=== PATIENT | female | born 1940 | race American Indian/Alaskan Native ===

== ENCOUNTER 2023-12-17 16:08 | Inpatient (IN) | payer MEDICARE ==
[~2023-12-17] VITALS: Ht 149.9 cm; Wt 85.6 kg
[2023-12-17] MEDS ORDERED: HYDRA25 PO (16:43)
[2023-12-17] MEDS ORDERED: ALLO100 (16:43)
[2023-12-17] MEDS ORDERED: LEVSOD25 PO (16:43)
[2023-12-17] MEDS ORDERED: ELIQUIS5 M2 PO (16:43)
[2023-12-17] MEDS ORDERED: TORSE20 PO (16:43)
[2023-12-17] MEDS ORDERED: ATOR40TA PO (16:43)
[2023-12-17] MEDS ORDERED: CATAPRES0.1 MG PO (16:44)
[2023-12-17] MEDS ORDERED: NS 1,000 ML IV SCH (16:45)
[2023-12-17 16:56] LABS: BASOPHILS ABSOLUTE AUTO 0.05 K/mm3 (0.00-0.23); BASOPHILS PERCENT AUTO 1 % (0-2); EOSINOPHILS ABSOLUTE AUTO 0.12 K/mm3 (0.00-0.68); EOSINOPHILS PERCENT AUTO 1 % (0-6); Hemoglobin 9.1 g/dL (11.5-16.0); IMMATURE GRAN ABSOLUTE AUTO 0.06 K/mm3 (0.00-0.10); IMMATURE GRAN PERCENT AUTO 1 % (0-1); LYMPHOCYTES ABSOLUTE AUTO 1.83 K/mm3 (0.84-5.20); LYMPHOCYTES PERCENT AUTO 18 % (21-46); MONOCYTES ABSOLUTE AUTO 0.71 K/mm3 (0.16-1.47); MONOCYTES PERCENT AUTO 7 % (4-13); Mean Corpuscular HGB 22.6 pg (26.0-34.0); Mean Corpuscular HGB Conc 28.4 g/dL (31.5-36.5); Mean Corpuscular Volume 80 fL (80-100); Mean Platelet Volume 11.3 fL (9.1-12.4); NEUTROPHILS PERCENT AUTO 73 % (41-73); Platelet Count 259 K/mm3 (150-400); RDW Coefficient Variation 19.1 % (11.7-14.2); Red Blood Cell Count 4.02 M/mm3 (3.80-5.20); White Blood Cell Count 10.37 K/mm3 (4.00-11.30)
[2023-12-17 17:10] LABS: Source, Urine Clean Catch
[2023-12-17 17:13] LABS: Albumin, Blood 3.5 g/dL (3.4-5.0); Albumin/Globulin Ratio 0.9 (0.8-1.8); Bilirubin, Total 0.4 mg/dL (0.1-1.0); Bun/Creatinine Ratio 23.1 (12.0-20.0); Creatinine, Blood 1.6 mg/dL (0.40-1.00); Magnesium, Blood 2.1 mg/dL (1.6-2.4); Potassium, Blood 4.1 mmol/L (3.5-5.5); Total Protein, Blood 7.5 g/dL (6.4-8.2)
[2023-12-17 17:16] LABS: Appearance, Urine Hazy (Clear); Bilirubin, Urine Neg (Neg); Blood, Urine 2+ (Neg); Glucose Qualitative, Urine Neg (Neg); Ketones, Urine Neg (Neg); Leukocyte Esterase, Urine 3+ (Neg); Nitrite, Urine Pos (Neg); Protein, Urine 1+ (Neg); Urobilinogen, Urine NORM (Normal)
[2023-12-17 17:25] LABS: Color, Urine Pale Yellow (P-Yellow)
[2023-12-17 17:27] LABS: Bacteria Many /hpf; Red Blood Cells, Urine 0-2 /hpf (0-2); Squamous Epithelial Cells Rare /hpf (Few); White Blood Cells, Urine TNTC /hpf (0-5)
[2023-12-17 17:28] LABS: Hyaline Casts 0-2 /lpf (0-2); Mucus Light (0-Heavy); Renal Epithelial Rare /hpf (0-Rare); Transitional Epithelial Cells Rare /hpf (0-Rare)
[2023-12-17] MEDS ORDERED: CefTRIAXone Sodium 1,000 MG in NS 100 ML IV ONE ×2 (18:35→19:50)
[2023-12-17] MEDS ORDERED: Azithromycin 250 MG Tab PO ONE (19:50)
[2023-12-17] MEDS ORDERED: Ondansetron HCl 2 MG / ML 2ML Vial IV PRN (22:20)
[2023-12-17] MEDS ORDERED: NS 1,000 ML IV ONE (22:20)
[2023-12-17] MEDS ORDERED: Acetaminophen 325 MG TABLET PO PRN (22:20)
[2023-12-17] MEDS ORDERED: FLU VACC TS2024-25(6MOS UP)/PF 45 MCG/0.5 ML SYRINGE IM ONE (22:20)
[2023-12-17] MEDS ORDERED: HydrALAZINE HCl 20 MG / ML 1ML Vial IV PRN (22:25)
[2023-12-17] MEDS ORDERED: Enoxaparin 40 MG/0.4 ML SYR SC SCH (23:00)
[2023-12-17 23:29] VITALS: BP 184/70
--- NOTE | 2023-12-17 23:30 | NUR ---
PT ARRIVED TO UNIT FROM ED, TRANSFERED TO BED W/ SLIDE SHEET. PT INSTRUCTED INSPECTOR BICYCLE LIGHT, BED ALARM ON FOR SAFETY. PT CONFUSED AND HALLUCINATED, UNABLE TO REPORT WHY SHE IS HERE. PT UNABLE TO RELAX FOR VITAL SIGNS. IV FLUIDS GIVEN ORDERED, PT DENIES PAIN. PT VOIDED IN BEDPAN UPON ARRIVAL, CHANGED ATTENDS AND PERFORMED LORNA CARE. PT REORIENTED SEVERAL TIMES. CALL LIGHT WITHIN REACH.
[2023-12-18 02:23] VITALS: BP 153/92
[2023-12-18] MEDS ORDERED: OLANZapine 10 MG Vial IM ONE (03:40)
--- NOTE | 2023-12-18 03:40 | NUR ---
PT BECOMING INCREASINGLY CONFUSED, AGITATED, TRYING TO GET OUT OF BED, UNABLE TO BE REORIENTED. PT STATES SHE "KNOWS SHE IS IN THE HOSPITAL, BUT NEEDS TO GET IN HER OWN BED". HAS SET OFF BED ALARM MULTIPLE TIMES. NOTIFIED DR. QUINN, RECIEVED ORDER FOR ZYPREXA INJECTION.
--- NOTE | 2023-12-18 04:31 | NUR ---
PT HAVING HALLUCINATIONS SINCE ADMIT.PT WAS GIVEN ZYPREXA PER ORDER.WHILE FOLLOWING UP ON STATUS, PT NOTED TO HAVE SLIGHTLY IRREG BREATHING PATTERN AND SATS 89% ON 4 L N/C WHICH WAS REPORTED TO BE PTS HOME BASELINE PER ER REPORT. NO FAMILY AT BEDSIDE UPON ARRIVAL TO . I CALLED DR QUINN AND ADVISED OF ABOVE.VBG ORDERED AND LAB HAD GATHERED.
[2023-12-18 04:38] LABS: Base Excess Venous -3.9 mmol/L; Bicarbonate Venous 20.5 mmol/L (24.0-30.0); PCO2 Venous 52.9 mmHg (38-42); pH Blood Venous 7.25 (7.34-7.37)
[2023-12-18 04:55] LABS: BASOPHILS ABSOLUTE AUTO 0.07 K/mm3 (0.00-0.23); BASOPHILS PERCENT AUTO 0 % (0-2); EOSINOPHILS ABSOLUTE AUTO 0.24 K/mm3 (0.00-0.68); EOSINOPHILS PERCENT AUTO 2 % (0-6); Hematocrit 34.7 % (33.0-51.0); Hemoglobin 9.8 g/dL (11.5-16.0); IMMATURE GRAN ABSOLUTE AUTO 0.07 K/mm3 (0.00-0.10); IMMATURE GRAN PERCENT AUTO 0 % (0-1); LYMPHOCYTES ABSOLUTE AUTO 1.55 K/mm3 (0.84-5.20); LYMPHOCYTES PERCENT AUTO 10 % (21-46); MONOCYTES ABSOLUTE AUTO 0.83 K/mm3 (0.16-1.47); MONOCYTES PERCENT AUTO 5 % (4-13); Mean Corpuscular HGB 22.9 pg (26.0-34.0); Mean Corpuscular HGB Conc 28.2 g/dL (31.5-36.5); Mean Corpuscular Volume 81 fL (80-100); Mean Platelet Volume 11.5 fL (9.1-12.4); NEUTROPHILS PERCENT AUTO 83 % (41-73); Platelet Count 292 K/mm3 (150-400); RDW Standard Deviation 56.4 fL (35.1-46.3); Red Blood Cell Count 4.28 M/mm3 (3.80-5.20); White Blood Cell Count 16.06 K/mm3 (4.00-11.30)
[2023-12-18 05:12] LABS: Albumin, Blood 3.6 g/dL (3.4-5.0); Albumin/Globulin Ratio 0.9 (0.8-1.8); Bilirubin, Total 0.4 mg/dL (0.1-1.0); Bun/Creatinine Ratio 20.8 (12.0-20.0); Calcium, Blood 9.2 mg/dL (8.5-10.1); Creatinine, Blood 1.49 mg/dL (0.40-1.00); Globulin, Blood 4.2 g/dL (2.2-4.0); Total Protein, Blood 7.8 g/dL (6.4-8.2)
--- NOTE | 2023-12-18 05:15 | NUR ---
444 VBG RESULTED CRITICAL PH.I CALLED RESULT TO DR QUINN AND RECEIVED ORDER FOR BIPAP ATTEMPT WITH F/U VBG IF BIPAP TOLERATED.PT IS CURRENTLY TOLERATING BIPAP. CONTINUES TO PICK AT AIR,BUT HAS NOT PULLED MASK OFF SO FAR. NEXT VBG SCHEDULED FOR 744.
--- NOTE | 2023-12-18 05:51 | NUR ---
SHIFT SUMMARY SEE PREVIOUS NOTES FOR CHANGES IN PT STATUS. PT CONTINUES TO BE CONFUSED BUT IS MORE RELAXED SINCE ADMINISTRATION OF ZYPREXA PER EMAR. BED ALARM ON FOR SAFETY. PURWICK IN PLACE. IV FLUIDS GIVEN PER EMAR. PT HAVING CONT AND INC VOIDS, ATTENDS CURRENTLY DRY. PT TOLERATING BIPAP, STILL FIDGETING AND PICKING AT AIR, ARGUING W/ STAFF AT TIMES BUT HAS NOT ATTEMPTED TO PULL BIPAP OFF. O2 SATS >90% W/ BIPAP ON. DR. QUINN ORDERED REPEAT VBG TO BE DRAWN LATER. PT DENIES PAIN. IV ABX ORDERED DAILY. CALL LIGHT IN REACH, HOMICIDE SQUAD SERGEANT AT BEDSIDE. UNABLE TO REVIEW HX W/ PT, PT IS A VERY POOR HISTORIAN.
[2023-12-18 07:22] VITALS: BP 136/68
[2023-12-18 08:10] LABS: PCO2 Venous 49.4 mmHg (38-42); pH Blood Venous 7.32 (7.34-7.37)
[2023-12-18 08:11] LABS: Base Excess Venous -0.5 mmol/L; Bicarbonate Venous 23.1 mmol/L (24.0-30.0)
--- NOTE | 2023-12-18 09:30 | NUR ---
DR. PAK ROUNDED. DISCUSSED PT STATUS, INCREASED WBC COUNT, LOW URINARY OUTPUT, IV FLUID RATE, R SHOULDER PAIN AND MUMBLED SPEECH. DR. HAYNES REQUESTED PT BE TRANSFERED TO PCU. MEDICAL EDUCATION COORDINATOR NOTIFIED.
[2023-12-18] MEDS ORDERED: NS 1,000 ML IV SCH (10:50)
[2023-12-18 11:31] VITALS: BP 116/98
--- NOTE | 2023-12-18 11:37 | NUR ---
REPORT GIVEN TO MIGUEL IN PCU. PT TRANSFERRED TO PCU 9 AT 1121 WITH ASSISTANCE FROM CHAS FROM RT. PT AWAKE AND UNCHANGED SINCE AM ASSESSMENT AT TIME OF TRANSFER. FAMILY NOTIFIED OF TRANFER TO PCU.
--- NOTE | 2023-12-18 13:29 | NUR ---
PCU ARRIVAL / UPDATE PT BROUGHT TO PCU-09 BY BED FROM SURGICAL FLOOR @ APPROX 1120. PT WAKES TO VERBAL STIMULI. PT SPEECH MUMBLED & DIFFICULT TO UNDERSTAND. PT ORIENTED TO SELF & FAMILY AT BEDSIDE. PT STATING LOCATION [facility]. PT DENIES KNOWING DATE. PT SPEAKING INCOMPREHENSIBLY WHILE NO ONE PRESENT IN RM. PT VSS. MONITOR SHOWING PACED RHYTHM, HR 60s. SPO2 > 90% ON BIPAP: 10/5, FIO2 30%. PT FAMILY REPORTING PT WEARS CPAP AT HOME & 4L NC. PT FAMILY REPORTING PT NOT CONSISTENTLY WEARING OXYGEN AT HOME, STATING PT MORE FIDGETY RECENTLY. PT FAMILY REQUESTING PT TRANSFER TO [facility] D/T PT RECEIVING ALL HER CARE THERE. MD PAK TO BEDSIDE TO DISCUSS W/ FAMILY. PT REPORTING NEED TO VOID. PT ASSISTED W/ BEDPAN W/ PT UNABLE TO VOID. BLADDER SCAN SHOWING 925 MLS. MD PAK W/ INSTRUCTION TO STRAIGHT CATH.
[2023-12-18 14:34] LABS: Base Excess Venous -1.4 mmol/L; Bicarbonate Venous 22.8 mmol/L (24.0-30.0); PCO2 Venous 43.8 mmHg (38-42); pH Blood Venous 7.35 (7.34-7.37)
[2023-12-18] MEDS ORDERED: Ipratropium Bromide INH 0.02% 0.5 mg/2.5ML Vial INH SCH (14:35)
[2023-12-18] MEDS ORDERED: Mometasone/Formoterol MDI 100/5 mcg 13 GM INH SCH (14:35)
[2023-12-18] MEDS ORDERED: Tiotropium Bromide 2.5 MCG/ACT MIST INHAL (10 ACT/4 GM) INH SCH (15:00)
[2023-12-18] MEDS ORDERED: Albuterol 2.5 MG/3 ML VIAL INH PRN (15:00)
[2023-12-18 16:14] VITALS: BP 156/97
[2023-12-18] MEDS ORDERED: TRELEGY ELLIPT1 EACH INH (16:27)
[2023-12-18] MEDS ORDERED: Bisoprolol Fuma10 MG PO (16:27)
[2023-12-18] MEDS ORDERED: TOLTERODINE TART4 MG PO (16:29)
[2023-12-18] MEDS ORDERED: Budeprion Xl300 MG PO (16:31)
[2023-12-18] MEDS ORDERED: ALBU90OI INH (16:33)
[2023-12-18] MEDS ORDERED: PredniSONE 20 MG Tab PO SCH (17:00)
--- NOTE | 2023-12-18 17:47 | NUR ---
END OF SHIFT PT CONTINUES TO BE CONFUSED. ORIENTED TO SELF. NEWLY STATING LOCATION "HOSPITAL" BUT CONTINUES TO BE DISORIENTED TO TOWN, DATE/TIME. PT SPEECH REMAINS DIFFICULT TO UNDERSTAND. PT SLEEPING INTERMITTENTLY T/O SHIFT. VSS. SPO2 > 92% ON BIPAP: 12/23, 30%. MONITOR SHOWING PACED RHYTHM, HR 60s. STRAIGHT CATH DONE X1 THIS SHIFT W/ 1,100 MLS YELLOW URINE DRAINED. NS GTT INFUSING PER EMAR. BED ALARM ON.
[2023-12-18 20:00] VITALS: BP 110/72
[2023-12-18] MEDS ORDERED: CefTRIAXone Sodium 1,000 MG in NS 100 ML IV SCH (21:00)
[2023-12-18] MEDS ORDERED: Azithromycin 500 MG in NS 250 ML IV SCH (21:00)
[2023-12-18] MEDS ORDERED: CloNIDine 0.1 MG Tab PO SCH (21:00)
[2023-12-18 23:48] VITALS: BP 121/69
[2023-12-19 04:40] VITALS: BP 151/98
--- NOTE | 2023-12-19 05:00 | NUR ---
SHIFT SUMMARY SHIRA WAS ALERT, AND ORIENTED TO SELF AND HER DAUGHTER WHO WAS VISITING. RESPONDING YES AND NO APPROPRIATELY AND APPEARS TO UNDERSTAND WHAT IS BEING ASKED. PT BLADDER RETENTION MONITORED CLOSELY THIS SHIFT D/T DAYSHIFT REPORT OF RETENTION OF AROUND 1000ML. PT WAS STRAIGHT CATHED ONCE THIS SHIFT AND REPORTS RELIEF. PT CURRENTLY SATTING WELL ON BIPAP, BLOOD GAS VALUE IMPROVED. PT B/P AT START OF SHIFT WAS SIGNIFICANTLY LOWER THAN HER DAY SHIFT TREND, DISCUSSED WITH BUCK SWAMPER, BP MEDS HELD, PT MONITORED. AT THIS TIME HER B/P HAS RETURNED TO HER PREVIOUS TREND. PT RESTING IN BED AT A LOW POSITION WITH BED ALARM PLACED.
[2023-12-19] MEDS ORDERED: Levothyroxine Sodium 0.025 MG Tab PO SCH (06:00)
[2023-12-19] MEDS ORDERED: Omeprazole 20 MG CapCR PO SCH (06:00)
[2023-12-19 08:15] VITALS: BP 131/96
[2023-12-19] MEDS ORDERED: Calcitriol 0.25 MCG Cap PO SCH (09:00)
[2023-12-19] MEDS ORDERED: Atorvastatin 40 MG Tab PO SCH (09:00)
[2023-12-19] MEDS ORDERED: Allopurinol 100 MG Tab PO SCH (09:00)
[2023-12-19] MEDS ORDERED: Metoprolol Succinate 50 MG TABCR PO SCH (09:00)
[2023-12-19] MEDS ORDERED: buPROPion HCL 150 MG TAB.SR.12H PO SCH (09:00)
[2023-12-19 11:10] VITALS: BP 102/62
[2023-12-19 11:16] LABS: Base Excess Venous -5.5 mmol/L; PCO2 Venous 42.3 mmHg (38-42)
[2023-12-19 15:52] VITALS: BP 160/99
--- NOTE | 2023-12-19 18:08 | NUR ---
END OF SHIFT UPON CARE ASSUMPTION, PT A&O TO SELF & LOCATION "HOSPITAL". PT ALERT T/O MORNING W/ SPO2 > 92% ON 1L NC. PT THEN SLEEPING, TRANSITIONED BACK TO BIPAP D/T DESAT WHILE SLEEPING. PT TOLERATING BIPAP WELL. UPON ATTEMPT TO WAKE PT FOR DOCTOR ROUNDING, PT SWITCHED BACK TO NC. PT UNABLE TO OPEN EYES. W/ ORDER FOR REPEAT VBG & PLACE BIPAP BACK ON AFTER VBG. PT SLEEPING HEAVILY T/O AFTERNOON, WAKING ONLY BRIEFLY TO VERBAL STIMULI W/ TOUCH. BLADDER SCANS DONE THIS SHIFT. BLADDER SCAN SHOWING > 400 MLS. PT ENCOURAGED TO ATTEMPT VOIDING ON BEDPAN. PT STATING "THIS IS BULLSHIT. I CAN'T PEE. YOU HAVE TO PUT SOMETHING INSIDE ME." PT ATTEMPTING TO VOID ON BEDPAN BUT UNABLE. STRAIGHT CATH DONE @ APPROX 1730 W/ APPROX 720 MLS URINE OUT. PT BRIEFLY ALERT & INTERACTIVE, NOW SLEEPING AGAIN. BED ALARM ON.
[2023-12-19 19:55] VITALS: BP 149/92
[2023-12-19] MEDS ORDERED: Bisacodyl 10 MG Supp PR PRN (23:30)
[2023-12-19] MEDS ORDERED: Magnesium Hydroxide Conc 10 ML UDC PO PRN (23:35)
[2023-12-20 00:01] VITALS: BP 106/58
[2023-12-20 04:00] VITALS: BP 132/93
[2023-12-20 04:13] LABS: BASOPHILS ABSOLUTE AUTO 0.07 K/mm3 (0.00-0.23); BASOPHILS PERCENT AUTO 1 % (0-2); EOSINOPHILS ABSOLUTE AUTO 0.19 K/mm3 (0.00-0.68); EOSINOPHILS PERCENT AUTO 2 % (0-6); Hematocrit 33.2 % (33.0-51.0); Hemoglobin 9.6 g/dL (11.5-16.0); IMMATURE GRAN PERCENT AUTO 1 % (0-1); LYMPHOCYTES ABSOLUTE AUTO 0.78 K/mm3 (0.84-5.20); LYMPHOCYTES PERCENT AUTO 6 % (21-46); MONOCYTES ABSOLUTE AUTO 1.11 K/mm3 (0.16-1.47); MONOCYTES PERCENT AUTO 9 % (4-13); Mean Corpuscular HGB 23.4 pg (26.0-34.0); Mean Corpuscular HGB Conc 28.9 g/dL (31.5-36.5); Mean Corpuscular Volume 81 fL (80-100); NEUTROPHILS ABSOLUTE AUTO 10.02 K/mm3 (1.96-9.15); NEUTROPHILS PERCENT AUTO 82 % (41-73); NRBC ABSOLUTE 0.07 K/mm3 (0.00-0.02); NRBC Auto 0.6 /100 WBC (0.0-0.2); Platelet Count 196 K/mm3 (150-400); RDW Coefficient Variation 19.3 % (11.7-14.2); RDW Standard Deviation 55.2 fL (35.1-46.3); Red Blood Cell Count 4.11 M/mm3 (3.80-5.20); White Blood Cell Count 12.27 K/mm3 (4.00-11.30)
[2023-12-20 04:20] LABS: Mean Platelet Volume 11.5 fL (9.1-12.4)
--- NOTE | 2023-12-20 05:56 | NUR ---
SHIFT SUMMARY ASSUMED CARE OF PT AT 1900. PT A&O4, ABLE TO EXPRESS SELF CLEARLY AND COOPERATIVE IN CARE. AT APPROX MIDNIGHT, PT BECAME TACHYPNEIC, CONFUSED AND BEGAN TO MUMBLE. PT REQUESTED A BREATHING TX, A&O2 WITH CONFUSION TO TIME AND SITUATION. CALLED RT FOR TX AND TO BE PLACED ON BIPAP. AT APPROX 0400 PT BECAME A&O4 BUT STILL ALTERED IN SPEECH WITH A SLIGHT MUMBLE BUT STILL ABLE TO MAKE OUT WHAT THE PT IS SAYING. PT STAYED ON BIPAP T/O THE NIGHT. PT REPORTED NO URGE TO VOID, BLADDER SCANNED TWICE; [id number] AND [id number]. DID NOT MEET CRITERIA FOR STRAIGHT CATH. PT'S BED IN LOWEST POSITION AND CALL LIGHT WITHIN REACH.
[2023-12-20 06:29] LABS: Albumin, Blood 3.1 g/dL (3.4-5.0); Albumin/Globulin Ratio 0.9 (0.8-1.8); Bilirubin, Total 0.4 mg/dL (0.1-1.0); Bun/Creatinine Ratio 32.4 (12.0-20.0); Calcium, Blood 8.2 mg/dL (8.5-10.1); Creatinine, Blood 1.48 mg/dL (0.40-1.00); Globulin, Blood 3.5 g/dL (2.2-4.0); Potassium, Blood 4.4 mmol/L (3.5-5.5); Total Protein, Blood 6.6 g/dL (6.4-8.2)
[2023-12-20 07:41] VITALS: BP 131/80
[2023-12-20] MEDS ORDERED: Docusate Sodium 100 MG Cap PO SCH (09:00)
[2023-12-20] MEDS ORDERED: Sennosides 8.6 MG Tab PO SCH (09:00)
[2023-12-20] MEDS ORDERED: Enoxaparin 30 MG/0.3 ML SYR SC SCH (09:00)
[2023-12-20 11:45] LABS: Source, Urine Foley catheter
[2023-12-20 11:58] LABS: Appearance, Urine Clear (Clear); Bilirubin, Urine Neg (Neg); Blood, Urine 3+ (Neg); Color, Urine Yellow (P-Yellow); Glucose Qualitative, Urine Neg (Neg); Ketones, Urine Neg (Neg); Leukocyte Esterase, Urine 2+ (Neg); Nitrite, Urine Neg (Neg); Protein, Urine 2+ (Neg); Urobilinogen, Urine NORM (Normal)
[2023-12-20 12:16] LABS: Squamous Epithelial Cells Few /hpf (Few)
[2023-12-20 12:17] LABS: Bacteria Rare /hpf; Yeast/Fungi Urine Few /hpf
[2023-12-20 15:11] VITALS: BP 121/89
--- NOTE | 2023-12-20 17:58 | NUR ---
SHIFT SUMMARY: PT HAS BEEN A&O TO SELF, LOCATION, SITUATION, VISITORS THIS SHIFT. PT HAS BEEN ANSWERING QUESTIONS APPROPRIATELY, SPEECH IS SOFT/MUMBLED, COOPERATIVE W/CARE. BIPAP REMOVED THIS AM FOR BREAKFAST, PT PLACED ON NC AT 2 L/MIN, TOLERATES WELL, BIPAP PUT BACK ON THIS AFTERNOON AND PT STILL WEARING. PT DENIES CP, PACED RHYTHM IN 60s. FREQUENT BLADDER SCANS AND STRAIGHT CATHs MEET CRITERIA FOR INDWELLING KELLY CATHETER BEING PLACED, SAMPLE COLLECTED AND SENT TO LAB. BOWEL CARE MEDS ADMINISTERED PER EMAR THIS AM, PT ABLE TO PRODUCE SMALL BM. ULTRASOUND IN ROOM AT THIS TIME FOR RUQ US. CALL LIGHT IN REACH.
[2023-12-20] MEDS ORDERED: Torsemide 20 MG TAB PO SCH (19:00)
[2023-12-20 20:38] VITALS: BP 121/87
[2023-12-20] MEDS ORDERED: Ampicillin Sod/Sulbactam Sod 3 GM in NS 100 ML IV SCH (21:00)
[2023-12-21 04:28] LABS: BASOPHILS ABSOLUTE AUTO 0.05 K/mm3 (0.00-0.23); BASOPHILS PERCENT AUTO 0 % (0-2); EOSINOPHILS ABSOLUTE AUTO 0.01 K/mm3 (0.00-0.68); EOSINOPHILS PERCENT AUTO 0 % (0-6); Hematocrit 33.1 % (33.0-51.0); Hemoglobin 9.7 g/dL (11.5-16.0); IMMATURE GRAN ABSOLUTE AUTO 0.23 K/mm3 (0.00-0.10); IMMATURE GRAN PERCENT AUTO 2 % (0-1); LYMPHOCYTES ABSOLUTE AUTO 1.05 K/mm3 (0.84-5.20); LYMPHOCYTES PERCENT AUTO 8 % (21-46); MONOCYTES ABSOLUTE AUTO 1.06 K/mm3 (0.16-1.47); MONOCYTES PERCENT AUTO 9 % (4-13); Mean Corpuscular HGB 23.1 pg (26.0-34.0); Mean Corpuscular HGB Conc 29.3 g/dL (31.5-36.5); Mean Corpuscular Volume 79 fL (80-100); NEUTROPHILS ABSOLUTE AUTO 10.11 K/mm3 (1.96-9.15); NEUTROPHILS PERCENT AUTO 81 % (41-73); NRBC ABSOLUTE 0.22 K/mm3 (0.00-0.02); NRBC Auto 1.8 /100 WBC (0.0-0.2); Platelet Count 192 K/mm3 (150-400); RDW Coefficient Variation 19.3 % (11.7-14.2); RDW Standard Deviation 53.4 fL (35.1-46.3); White Blood Cell Count 12.51 K/mm3 (4.00-11.30)
[2023-12-21 04:34] VITALS: BP 126/83
[2023-12-21 04:55] LABS: Magnesium, Blood 2.1 mg/dL (1.6-2.4)
[2023-12-21 05:03] LABS: Albumin/Globulin Ratio 0.8 (0.8-1.8); Bilirubin, Total 0.5 mg/dL (0.1-1.0); Calcium, Blood 8.3 mg/dL (8.5-10.1); Creatinine, Blood 1.2 mg/dL (0.40-1.00); Globulin, Blood 3.9 g/dL (2.2-4.0); Potassium, Blood 4.1 mmol/L (3.5-5.5); Total Protein, Blood 6.9 g/dL (6.4-8.2)
--- NOTE | 2023-12-21 06:47 | NUR ---
SHIFT SUMMARY RESUMED CARE OF PT AT 1900. PT A&O4, COOPERATIVE IN CARE AND ABLE TO EXPRESS SELF CLEARLY. VSS AND PT ON 1LNC, ONCE READY FOR SLEEP, PT CALLED AND REQUESTED BIPAP. NO ACUTE EVENTS OVERNIGHT. PT BED IN LOWEST POSITION AND CALL LIGHT WITHIN REACH.
[2023-12-21 08:45] VITALS: BP 98/69
[2023-12-21] MEDS ORDERED: Ampicillin Sod/Sulbactam Sod 3 GM in NS 100 ML IV SCH (09:00)
[2023-12-21] MEDS ORDERED: Enoxaparin 40 MG/0.4 ML SYR SC SCH (09:00)
[2023-12-21] MEDS ORDERED: TraMADol HCl 50 MG Tab PO PRN (11:20)
[2023-12-21 15:42] VITALS: BP 141/53
--- NOTE | 2023-12-21 16:22 | NUR ---
REPORT GIVEN TO MED FLOOR RN AT 1434. ROOM BEING CLEANED AT TIME OF REPORT. PT TRANSFERED AT 1610 VIA HOSPITAL BED. PT ON 2L NC AT TIME OF TRANSFER, SATS IN THE 90'S. PERSONAL BELONGINGS AND CHART TRANSFERED WITH PT.
[2023-12-21 16:26] VITALS: BP 130/88
[2023-12-21] MEDS ORDERED: NS 250 ML IV PRN (16:30)
--- NOTE | 2023-12-21 19:09 | NUR ---
SHIFT SUMMARY PATIENT A/OX4, ABLE TO MAKE NEEDS KNOWN. PATIENT ARRIVED TO ROOM 306 AT 1630. SCHEDULED 1500 ABX INFUSED AT TIME OF ARRIVAL. NEW IV PLACCED TO LEFT FOREARM DUE TO PREVIOUS IV LEAKING, PATIENT TOLERATED WELL. PATIENT ON 2L NASAL CANNULA SUPPLEMENTAL OXYGEN. NONBLANCHABLE PURPLE DISCOLORATION TO BUTTOCK, ABRASION TO R KNEE, AND BLISTERS TO SECOND TOE ON LEFT FOOT NOTED. PATIENT DENIES PAIN AT THIS TIME, BUT HAS CHRONIC LEFT HIP PAIN. 2 PERSON ASSIST WITH TRANSFERS, KELLY CATHETER IN PLACE. ATRIAL PACE MAKER. PATIENT REPORTS 4 FALLS WITHIN THE LAST WEEK, NO OTHER CONCERNS AT THIS TIME.
[2023-12-21 19:15] VITALS: BP 146/104
[2023-12-21] MEDS ORDERED: Apixaban 5 MG Tab PO SCH (21:00)
[2023-12-22 03:46] VITALS: BP 119/93
--- NOTE | 2023-12-22 04:35 | NUR ---
SHIFT SUMMMARY PATIENT HAD NO ACUTE CHANGES. AXOX 4 AND 1-2 ASSIST TO BSC. DENIES CHEST PAIN, SOB, AND N/V. ON 2L O2 NC. PIV INTACT. IV ABXS INFUSED. VSS/AFEBRILE. KELLY PATENT AND DRAINING TO GRAVITY FOR RETENTION. ATRIAL PACE MAKER. CALL LIGHT IN REACH. BED IN LOWEST POSITION. WILL CONTINUE TO MONITOR UNTIL DAY SHIFT NURSE ASSUMES CARE.
[2023-12-22 04:54] LABS: Hematocrit 33.1 % (33.0-51.0); Hemoglobin 9.8 g/dL (11.5-16.0); Mean Corpuscular HGB 23.2 pg (26.0-34.0); Mean Corpuscular HGB Conc 29.6 g/dL (31.5-36.5); Mean Corpuscular Volume 78 fL (80-100); NRBC ABSOLUTE 0.32 K/mm3 (0.00-0.02); Platelet Count 187 K/mm3 (150-400); RDW Coefficient Variation 19.9 % (11.7-14.2); RDW Standard Deviation 54.8 fL (35.1-46.3); Red Blood Cell Count 4.23 M/mm3 (3.80-5.20); White Blood Cell Count 15.78 K/mm3 (4.00-11.30)
[2023-12-22 05:05] LABS: Mean Platelet Volume 11.7 fL (9.1-12.4)
[2023-12-22 05:22] LABS: Albumin/Globulin Ratio 0.8 (0.8-1.8); Bilirubin, Total 0.6 mg/dL (0.1-1.0); Bun/Creatinine Ratio 38.8 (12.0-20.0); Calcium, Blood 8.6 mg/dL (8.5-10.1); Creatinine, Blood 1.16 mg/dL (0.40-1.00); Globulin, Blood 3.7 g/dL (2.2-4.0); Potassium, Blood 3.5 mmol/L (3.5-5.5); Total Protein, Blood 6.7 g/dL (6.4-8.2)
[2023-12-22 05:35] LABS: BASOPHILS PERCENT MAN 0 % (0-2); EOSINOPHILS PERCENT MAN 0 % (0-6); LYMPHOCYTES ABSOLUTE MAN 1.89 K/mm3 (0.84-5.20); LYMPHOCYTES PERCENT MAN 12 % (21-46); MONOCYTES ABSOLUTE MAN 0.94 K/mm3 (0.16-1.47); MONOCYTES PERCENT MAN 6 % (4-13); MYELOCYTE ABSOLUTE MAN 0.15 K/mm3 (0.00-0.00); MYELOCYTE PERCENT MAN 1 % (0-0); NEUTROPHILS ABSOLUTE MAN 12.78 K/mm3 (1.96-9.15); SEG NEUTROPHILS PERCENT MAN 81 % (41-73); TOTAL CELLS COUNTED 100
[2023-12-22 08:17] VITALS: BP 135/94
[2023-12-22] MEDS ORDERED: TraMADol HCl 50 MG Tab PO PRN (12:40)
[2023-12-22 13:08] LABS: HEPATITIS A ANTIBODY, IGM Negative (Negative); HEPATITIS B CORE ANTIBODY, IGM Negative (Negative); HEPATITIS B SURFACE ANTIGEN Negative (Negative); HEPATITIS C AB CIA INTERP Negative (Negative); HEPATITIS C ANTIBODY CIA INDEX 0.14 IV
[2023-12-22 14:42] VITALS: BP 93/72
--- NOTE | 2023-12-22 19:35 | NUR ---
NO ACUTE CHANGES, WORKED WIT PT TODAY, MEDICATED FOR PAIN WITH TRAMADOL, PATIENT REPORTED TRAMADOL WORKING FOR HER PAIN, ALERT AND ORIENTED TO ALL, CALL LIGHT WITH IN REACH, WILL RELAY TO PM RN
[2023-12-22 20:00] VITALS: BP 96/73
[2023-12-23 02:59] VITALS: BP 139/93
[2023-12-23 05:48] LABS: Hematocrit 36.1 % (33.0-51.0); Hemoglobin 10.5 g/dL (11.5-16.0); Mean Corpuscular HGB 22.8 pg (26.0-34.0); Mean Corpuscular HGB Conc 29.1 g/dL (31.5-36.5); Mean Corpuscular Volume 78 fL (80-100); NRBC ABSOLUTE 0.23 K/mm3 (0.00-0.02); NRBC Auto 1.4 /100 WBC (0.0-0.2); Platelet Count 174 K/mm3 (150-400); RDW Coefficient Variation 20.3 % (11.7-14.2); RDW Standard Deviation 56.1 fL (35.1-46.3); Red Blood Cell Count 4.61 M/mm3 (3.80-5.20); White Blood Cell Count 15.96 K/mm3 (4.00-11.30)
[2023-12-23 05:59] LABS: International Normalized Ratio 1.19; Prothrombin Time Results 12.6 Sec (9.7-11.5)
[2023-12-23 06:08] LABS: BAND PERCENT MAN 7 % (0-8); BASOPHILS PERCENT MAN 0 % (0-2); EOSINOPHILS PERCENT MAN 0 % (0-6); LYMPHOCYTES % ATYPICAL MANUAL 2 % (0-0); LYMPHOCYTES ABSOLUTE MAN 2.55 K/mm3 (0.84-5.20); LYMPHOCYTES PERCENT MAN 14 % (21-46); MONOCYTES ABSOLUTE MAN 1.27 K/mm3 (0.16-1.47); MONOCYTES PERCENT MAN 8 % (4-13); MYELOCYTE ABSOLUTE MAN 0.31 K/mm3 (0.00-0.00); MYELOCYTE PERCENT MAN 2 % (0-0); NEUTROPHILS ABSOLUTE MAN 11.81 K/mm3 (1.96-9.15); SEG NEUTROPHILS PERCENT MAN 67 % (41-73); TOTAL CELLS COUNTED 100
--- NOTE | 2023-12-23 06:19 | NUR ---
SHIFT SUMMARY PT A&Ox4 AND PLEASANT. PT C/O CHRONIC L HIP PAIN AND WAS MEDICATED PER EMAR. DAUGHTER AT BEDSIDE AT START OF SHIFT. CONTINUING IV ABX. PT ON 2L OF OXYGEN DURING THE DAY BUT USES CPAP AT NIGHT. KELLY DC'd AT [address] MONZON. BLADDER SCAN SHOWED 137ML POST VOID AT 0530. VSS BUT BP SOFT. BED ALARM ON. BED IN LOWEST POSITION AND CALL LIGHT IN REACH.
[2023-12-23 06:27] LABS: Albumin/Globulin Ratio 0.8 (0.8-1.8); Bilirubin, Total 0.7 mg/dL (0.1-1.0); Bun/Creatinine Ratio 37.8 (12.0-20.0); Calcium, Blood 8.8 mg/dL (8.5-10.1); Creatinine, Blood 1.11 mg/dL (0.40-1.00); Globulin, Blood 3.8 g/dL (2.2-4.0); Potassium, Blood 3.3 mmol/L (3.5-5.5); Total Protein, Blood 6.8 g/dL (6.4-8.2)
[2023-12-23 07:57] VITALS: BP 146/101
[2023-12-23] MEDS ORDERED: Potassium Chloride 20 MEQ TabCR PO SCH (11:00)
[2023-12-23 19:55] VITALS: BP 110/81
--- NOTE | 2023-12-23 20:03 | NUR ---
SHIFT SUMMARY PATIENT A/OX4, ABLE TO MAKE NEEDS KNOWN. PLEASANT AND COOPERATIVE WITH STAFF. VOIDING APPROPRIATELTY POST KELLY REMOVAL. PARTICIPATED IN PT/OT TODAY. COMPLAINING OF CHRONIC LEFT HIP PAIN, MEDICATED PER MAY. CONTINUES WITH IV ABX PER MAY. DAUGHTER, CLARICE, AT BEDSIDE THIS EVENING. PATIENT USES 3 LPM VIA NASAL CANNULA CHRONIC, CURRENTLY ON 2LPM, SPO2 WNL. CONTINUOUS PULSE OX IN PLACE. NO OTHER CONCERNS AT THIS TIME.
--- NOTE | 2023-12-23 23:42 | NUR ---
DR MONZON CALLED AND INQUIRED IF PT WAS HAVING ANY TROUBLE VOIDING SINCE KELLY REMOVED. INFORMED THAT PT IS VOIDING NORMALLY WITHOUT ISSUES.
[2023-12-24 03:54] VITALS: BP 122/77
[2023-12-24 05:30] LABS: Albumin, Blood 2.8 g/dL (3.4-5.0); Albumin/Globulin Ratio 0.8 (0.8-1.8); Bilirubin, Total 0.4 mg/dL (0.1-1.0); Bun/Creatinine Ratio 36.1 (12.0-20.0); Calcium, Blood 8.5 mg/dL (8.5-10.1); Creatinine, Blood 1.19 mg/dL (0.40-1.00); Globulin, Blood 3.5 g/dL (2.2-4.0); Potassium, Blood 3.8 mmol/L (3.5-5.5); Total Protein, Blood 6.3 g/dL (6.4-8.2)
--- NOTE | 2023-12-24 06:10 | NUR ---
SHIFT SUMMARY NOC PT A/O X 4. PLEASANT AND COOPERATIVE WITH CARE. BEDTIME CATAPRES HELD DUE TO SOFT BP AND HR. BOWEL CARE RX PER PT REQUEST, PT HAVING LOOSE STOOLS. PT ON O2 2L/NC SPO2 >92%, USING BIPAP FOR SLEEP. PT NOT HAVING ISSUES WITH VOIDING SINCE KELLY REMOVAL, DR MONZON CALLED FOR UPDATE ON PT VOIDING. PT IS AWAITING INSURANCE APPROVAL FOR DISCHARGE TO [facility]. PT CURRENTLY RESTING WITH BED IN LOWEST POSITION, AND CALL LIGHT WITHIN REACH.
[2023-12-24 08:07] VITALS: BP 142/91
[2023-12-24] MEDS ORDERED: PredniSONE 20 MG Tab PO SCH (09:00)
[2023-12-24] MEDS ORDERED: Ipratropium/Albuterol SulF 2.5-0.5MG/3 ML Amp INH PRN (11:40)
[2023-12-24 14:43] VITALS: BP 100/71
[2023-12-24] MEDS ORDERED: Ipratropium Bromide INH 0.02% 0.5 mg/2.5ML Vial INH SCH (17:00)
[2023-12-24] MEDS ORDERED: Mometasone/Formoterol MDI 100/5 mcg 13 GM INH SCH (17:00)
--- NOTE | 2023-12-24 17:13 | NUR ---
SHIFT SUMMARY; PATIENT WILL GO TO SNF AFTER MEDICARE APPROVAL. CASE MANAGEMENT [place]AG[place] RN SAYS PROBABLY TUESDAY. PATIENT RECEIVING ALBUTEROL NEBS DURING DAY. LUNGS ARE WHEEZY AND TIGHT. PATIENT REMAINS ON BEDREST. IS A ONE PERSON ASSIST TO THE BEDSIDE COMMODE. HER VITAL SIGNS ARE STABLE AND WNL. SHE DENIES ANY PAIN OR DISCOMFORT. SHE IS AO X 4. MAKES GOOD EYE CONTACT AND USES CALL LIGHT APPROPRIATELY. SHE HAS PLEASANT AFFECT AND IS ABLE TO MAKE HER NEEDS KNOWN.
[2023-12-24] MEDS ORDERED: Ipratropium/Albuterol SulF 2.5-0.5MG/3 ML Amp INH SCH (19:00)
[2023-12-24 20:08] VITALS: BP 99/79
[2023-12-24] MEDS ORDERED: Trospium Chloride 20 MG Tab PO SCH (21:00)
[2023-12-25 03:02] VITALS: BP 122/94
[2023-12-25 05:17] LABS: BASOPHILS ABSOLUTE AUTO 0.03 K/mm3 (0.00-0.23); BASOPHILS PERCENT AUTO 0 % (0-2); EOSINOPHILS ABSOLUTE AUTO 0.17 K/mm3 (0.00-0.68); EOSINOPHILS PERCENT AUTO 1 % (0-6); Hematocrit 36.1 % (33.0-51.0); Hemoglobin 10.9 g/dL (11.5-16.0); IMMATURE GRAN ABSOLUTE AUTO 0.28 K/mm3 (0.00-0.10); IMMATURE GRAN PERCENT AUTO 2 % (0-1); LYMPHOCYTES ABSOLUTE AUTO 4.64 K/mm3 (0.84-5.20); LYMPHOCYTES PERCENT AUTO 24 % (21-46); MONOCYTES ABSOLUTE AUTO 1.46 K/mm3 (0.16-1.47); MONOCYTES PERCENT AUTO 8 % (4-13); Mean Corpuscular HGB 23.2 pg (26.0-34.0); Mean Corpuscular HGB Conc 30.2 g/dL (31.5-36.5); Mean Corpuscular Volume 77 fL (80-100); NEUTROPHILS ABSOLUTE AUTO 12.49 K/mm3 (1.96-9.15); NEUTROPHILS PERCENT AUTO 65 % (41-73); NRBC ABSOLUTE 0.05 K/mm3 (0.00-0.02); NRBC Auto 0.3 /100 WBC (0.0-0.2); Platelet Count 180 K/mm3 (150-400); RDW Coefficient Variation 20.5 % (11.7-14.2); RDW Standard Deviation 55.6 fL (35.1-46.3); White Blood Cell Count 19.07 K/mm3 (4.00-11.30)
[2023-12-25 05:36] LABS: Albumin, Blood 2.9 g/dL (3.4-5.0); Albumin/Globulin Ratio 0.8 (0.8-1.8); Bilirubin, Total 0.6 mg/dL (0.1-1.0); Bun/Creatinine Ratio 44.9 (12.0-20.0); Calcium, Blood 8.8 mg/dL (8.5-10.1); Creatinine, Blood 1.07 mg/dL (0.40-1.00); Globulin, Blood 3.6 g/dL (2.2-4.0); Potassium, Blood 4.5 mmol/L (3.5-5.5); Total Protein, Blood 6.5 g/dL (6.4-8.2)
--- NOTE | 2023-12-25 06:12 | NUR ---
SHIFT SUMMARY NOC PT A/O X 4. PLEASANT AND COOPERATIVE WITH CARE. BP SOFT AND CLONIDINE HELD. LUNG SOUNDS STILL TIGHT T/O BUT PT REPORTS BREATHING DOES NOT FEELING LABORED. PT STILL ON O2 2L/NC SPO2 >92% ON BIOX, ALSO ON BIPAP FOR SLEEP. PT INSURANCE APPROVAL PAPERWORK SUBMITTED YESTERDAY WITH [employer] DATE OF TUESDAY FOR DISCHARGE TO [facility]. PT CURRENTLY RESTING WITH BED IN LOWEST POSITION, AND CALL LIGHT WITHIN RIGHT.
[2023-12-25 07:28] VITALS: BP 132/95
[2023-12-25 15:35] VITALS: BP 95/80
[2023-12-25 15:43] VITALS: BP 179/66
[2023-12-25 16:34] VITALS: BP 123/76
--- NOTE | 2023-12-25 18:44 | NUR ---
SHIRA IS ALERT & ORIENTED X4. USING 2LPM 02 VIA NC. 1 PERSON STAND BY ASSIST TO THE BSC. IV ACCESS TO THE LFA. RECEIVING ANTIBIOTICS FOR SEPSIS R/T UTI. VISITED BY DAUGHTER, CLARICE, TODAY. PILLS WHOLE WITH WATER. PACEMAKER PRESENT TO THE LCW. ATRIAL PACED. HISTORY OF FALLS. REDDENED AREA TO RIGHT HEEL, BLANCHABLE, COVERED WITH MEPILEX. HEELS FLOATED ON PILLOWS. GOOD APPETITE.
[2023-12-25 19:55] VITALS: BP 134/81
[2023-12-26 02:47] VITALS: BP 107/94
--- NOTE | 2023-12-26 05:13 | NUR ---
SHIFT SUMMARY NOC PT A/O X 4. PLEASANT AND COOPERATIVE WITH CARE. VSS. NO ACUTE CHANGES TO REPORT. STILL ON O2 2L/NC AND USING BIPAP FOR SLEEP. L HIP PAIN MANAGED PER EMAR. PT AWAITING INSURANCE AUTHORIZATION FOR SNF PLACEMENT. PT CURRENTLY RESTING WITH BED IN LOWEST POSITION, AND CALL LIGHT WITHIN REACH.
[2023-12-26 07:12] VITALS: BP 111/55
[2023-12-26 08:46] LABS: BASOPHILS ABSOLUTE AUTO 0.04 K/mm3 (0.00-0.23); BASOPHILS PERCENT AUTO 0 % (0-2); EOSINOPHILS ABSOLUTE AUTO 0.29 K/mm3 (0.00-0.68); EOSINOPHILS PERCENT AUTO 2 % (0-6); Hematocrit 37.9 % (33.0-51.0); Hemoglobin 10.7 g/dL (11.5-16.0); IMMATURE GRAN ABSOLUTE AUTO 0.17 K/mm3 (0.00-0.10); IMMATURE GRAN PERCENT AUTO 1 % (0-1); LYMPHOCYTES ABSOLUTE AUTO 4.06 K/mm3 (0.84-5.20); LYMPHOCYTES PERCENT AUTO 24 % (21-46); MONOCYTES ABSOLUTE AUTO 1.39 K/mm3 (0.16-1.47); MONOCYTES PERCENT AUTO 8 % (4-13); Mean Corpuscular HGB 22.4 pg (26.0-34.0); Mean Corpuscular HGB Conc 28.2 g/dL (31.5-36.5); Mean Corpuscular Volume 80 fL (80-100); NEUTROPHILS ABSOLUTE AUTO 10.96 K/mm3 (1.96-9.15); NEUTROPHILS PERCENT AUTO 65 % (41-73); NRBC ABSOLUTE 0.03 K/mm3 (0.00-0.02); NRBC Auto 0.2 /100 WBC (0.0-0.2); Platelet Count 197 K/mm3 (150-400); RDW Coefficient Variation 20.7 % (11.7-14.2); RDW Standard Deviation 58.4 fL (35.1-46.3); Red Blood Cell Count 4.77 M/mm3 (3.80-5.20); White Blood Cell Count 16.91 K/mm3 (4.00-11.30)
[2023-12-26 09:16] LABS: Albumin, Blood 3.1 g/dL (3.4-5.0); Albumin/Globulin Ratio 0.8 (0.8-1.8); Bilirubin, Total 0.7 mg/dL (0.1-1.0); Calcium, Blood 9.3 mg/dL (8.5-10.1); Creatinine, Blood 1.37 mg/dL (0.40-1.00); Globulin, Blood 3.9 g/dL (2.2-4.0); Potassium, Blood 4.3 mmol/L (3.5-5.5)
[2023-12-26 13:46] LABS: SARS-Cov-2 (COVID-19) PCR, MMC NEGATIVE (NEGATIVE)
[2023-12-26 15:42] VITALS: BP 180/110
[2023-12-26 15:49] VITALS: BP 214/195
[2023-12-26 17:14] VITALS: BP 141/67
[2023-12-26 20:23] VITALS: BP 144/85
[2023-12-27 02:19] VITALS: BP 146/78
--- NOTE | 2023-12-27 03:54 | NUR ---
STAFF SERVICES MANAGER SUMMARY NO ACUTE CHANGES OVERNIGHT. ANTICIPATING DISCHARGE TO [facility] TODAY AT 1630
[2023-12-27 05:13] LABS: BASOPHILS ABSOLUTE AUTO 0.03 K/mm3 (0.00-0.23); EOSINOPHILS ABSOLUTE AUTO 0.11 K/mm3 (0.00-0.68); IMMATURE GRAN ABSOLUTE AUTO 0.16 K/mm3 (0.00-0.10); LYMPHOCYTES ABSOLUTE AUTO 3.05 K/mm3 (0.84-5.20); MONOCYTES ABSOLUTE AUTO 1.31 K/mm3 (0.16-1.47); NEUTROPHILS ABSOLUTE AUTO 12.19 K/mm3 (1.96-9.15)
[2023-12-27 05:15] LABS: BASOPHILS PERCENT AUTO 0 % (0-2); EOSINOPHILS PERCENT AUTO 1 % (0-6); Hematocrit 34.5 % (33.0-51.0); Hemoglobin 10.1 g/dL (11.5-16.0); IMMATURE GRAN PERCENT AUTO 1 % (0-1); LYMPHOCYTES PERCENT AUTO 18 % (21-46); MONOCYTES PERCENT AUTO 8 % (4-13); Mean Corpuscular HGB 23.1 pg (26.0-34.0); Mean Corpuscular HGB Conc 29.3 g/dL (31.5-36.5); Mean Corpuscular Volume 79 fL (80-100); NEUTROPHILS PERCENT AUTO 72 % (41-73); Platelet Count 197 K/mm3 (150-400); RDW Coefficient Variation 20.6 % (11.7-14.2); RDW Standard Deviation 57.9 fL (35.1-46.3); Red Blood Cell Count 4.37 M/mm3 (3.80-5.20)
[2023-12-27 05:34] LABS: Mean Platelet Volume 11.5 fL (9.1-12.4)
[2023-12-27 05:59] LABS: Albumin/Globulin Ratio 0.9 (0.8-1.8); Bilirubin, Total 0.5 mg/dL (0.1-1.0); Bun/Creatinine Ratio 34.5 (12.0-20.0); Calcium, Blood 9.5 mg/dL (8.5-10.1); Creatinine, Blood 1.45 mg/dL (0.40-1.00); Globulin, Blood 3.5 g/dL (2.2-4.0); Potassium, Blood 4.9 mmol/L (3.5-5.5); Total Protein, Blood 6.5 g/dL (6.4-8.2)
[2023-12-27] MEDS ORDERED: TraMADol HCl 50 MG Tab PO PRN (07:25)
[2023-12-27 07:54] VITALS: BP 129/60
[2023-12-27] MEDS ORDERED: Ampicillin Sod/Sulbactam Sod 3 GM in NS 100 ML IV SCH (12:00)
[2023-12-27] MEDS ORDERED: AMOCLA875 PO (15:11)
[2023-12-27] MEDS ORDERED: CALCITRIOL PO (15:12)
[2023-12-27] MEDS ORDERED: IPRAT-ALBUT 0.5-3 ML INH (15:15)
[2023-12-27] MEDS ORDERED: OMEP20ER PO (15:16)
[2023-12-27] MEDS ORDERED: POTCHL20ER PO (15:17)
[2023-12-27] MEDS ORDERED: Prednisone10 MG (15:18)
[2023-12-27] MEDS ORDERED: TRAM50 PO (15:19)
--- NOTE | 2023-12-27 15:48 | NUR ---
PT AWAKE DURING SHIFT REPORT, ON BIPAP. UP TO CHAIR AT BS, FOR BREAKFAST; 1P SBA. PT REMAINED IN CHAIR ALL DAY, UNTIL D/C TO REHAB. PT IS A&O, PLEASANT AND CO-OP. PT ABLE TO LEAVE VIA W/C TRANSPORT, AROUND 1400 TO [facility] [place]. ALL BELONGINGS WENT WITH PT.
== END 2023-12-27 14:12 | DRG 871 ==
LOC: ER 16:08 → PCU 21:23 → MEDS 21:23 → SURS 21:23 → PCU 12-18 11:30 → MEDS 12-19 16:21
PROVIDERS: Emergency Medicine; Internal Medicine; Student in an Organized Health Care Education/Training Program; ADMIT Internal Medicine
PROC: 0T9B70Z Drainage of Bladder with Drainage Device, Via Natural or Artificial Opening (ICD-10-PCS; principal; 2023-12-17)
PROC: 5A09557 Assistance with Respiratory Ventilation, Greater than 96 Consecutive Hours, Continuous Positive Airway Pressure (ICD-10-PCS; principal; 2023-12-17)
PROC: 3E03329 Introduction of Other Anti-infective into Peripheral Vein, Percutaneous Approach (ICD-10-PCS; principal; 2023-12-17)
DX: A41.51 Sepsis due to Escherichia coli [E. coli] (principal); G93.41 Metabolic encephalopathy; J15.9 Unspecified bacterial pneumonia; J96.21 Acute and chronic respiratory failure with hypoxia; J96.22 Acute and chronic respiratory failure with hypercapnia; N39.0 Urinary tract infection, site not specified; J44.1 Chronic obstructive pulmonary disease with (acute) exacerbation; J44.0 Chronic obstructive pulmonary disease with (acute) lower respiratory infection; N17.9 Acute kidney failure, unspecified; N18.4 Chronic kidney disease, stage 4 (severe); E87.20 Acidosis, unspecified; I13.0 Hypertensive heart and chronic kidney disease with heart failure and stage 1 through stage 4 chronic kidney disease, or unspecified chronic kidney disease; R74.01 Elevation of levels of liver transaminase levels; E03.9 Hypothyroidism, unspecified; F41.8 Other specified anxiety disorders; I48.91 Unspecified atrial fibrillation; I50.9 Heart failure, unspecified; G47.33 Obstructive sleep apnea (adult) (pediatric); Z98.890 Other specified postprocedural states; E66.9 Obesity, unspecified; R33.9 Retention of urine, unspecified; I27.20 Pulmonary hypertension, unspecified; G25.81 Restless legs syndrome; Z95.2 Presence of prosthetic heart valve; E78.5 Hyperlipidemia, unspecified; Z79.01 Long term (current) use of anticoagulants; Z79.899 Other long term (current) drug therapy; Z95.0 Presence of cardiac pacemaker; Z99.81 Dependence on supplemental oxygen; Z68.34 Body mass index [BMI] 34.0-34.9, adult
CPT/HCPCS: 36415; 51701; 70450; 71045; 76705; 80053; 80074; 81001; 82803; 82947; 83605; 83735; 83880; 84145; 84484; 85025; 85610; 87040; 87077; 87086; 87186; 93005; 93010; 94640; 94660; 94664; 94762; 96361-59; 96365-59; 96376-59; 97110; 97116; 97162; 97166; 97530; 97535; 99285-25; A9270; J0295; J0360; J0456; J0696; J1650; J7030; J7050; J7512; U0002